=== PATIENT | male | born 1955 | race African-American/Black ===

== ENCOUNTER 2021-03-04 14:20 | Inpatient (IN) | payer MEDICARE, OTHER ==
[~2021-03-04] VITALS: Ht 185.4 cm; Wt 73.5 kg
--- NOTE | 2021-03-04 14:50 | NUR ---
THE PATIENT IS BIBRA85 HOME FOR BEING "CONFUSED" SINCE THIS MORNING. 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 IN ROOM AIR AND DENIES SOB. RESPIRATION REGULAR AND UNLABORED. DENIES PAIN. ATTACHED TO THE MONITOR. WARM BLANKET PROVIDED FOR COFMORT. WILL CONTINUE TO MONITOR THE PATIENT.
[2021-03-04 15:26] LABS: BASOPHILS # (AUTO) 0.1 K/uL (0.0-0.2); BASOPHILS % (AUTO) 0.6 % (0.0-2.0); EOSINOPHILS % (AUTO) 0.3 % (0.0-6.0); HEMATOCRIT 29 % (39-51); HEMOGLOBIN 9.5 g/dL (13.5-17.5); LYMPHOCYTES # (AUTO) 1.1 K/uL (0.8-4.8); LYMPHOCYTES % (AUTO) 8.8 % (20.0-44.0); MEAN CORPUSCULAR HGB CONC 33 g/dl (31.0-36.0); MEAN CORPUSCULAR VOLUME 84 fL (80-96); MONOCYTES # (AUTO) 1.6 K/uL (0.1-1.30); MONOCYTES % (AUTO) 12.2 % (2.0-12.0); NEUTROPHILS # (AUTO) 10.1 K/uL (1.8-8.9); NEUTROPHILS % (AUTO) 78.1 % (43.0-81.0); PLATELET COUNT (AUTO) 322 K/uL (150-450); RED BLOOD CELL COUNT(AUTO) 3.41 MIL/uL (4.5-6.0); WHITE BLOOD COUNT (AUTO) 12.9 K/uL (4.3-11.0)
[2021-03-04 15:34] LABS: CALCIUM, SERUM 8.7 mg/dL (8.5-10.1); CARBON DIOXIDE 20 mmol/L (21-32); CHLORIDE 93 mmol/L (98-107); GLUCOSE 115 mg/dL (74-106); POTASSIUM 3.6 mmol/L (3.5-5.1); SODIUM SERUM 125 mmol/L (136-145); UREA NITROGEN, BLOOD 26 mg/dL (7-18)
[2021-03-04 15:39] LABS: ALANINE AMINOTRANSFERASE 194 U/L (12-78); ALBUMIN 2.2 g/dL (3.4-5.0); ALKALINE PHOSPHATASE 175 U/L (46-116); ASPARTATE AMINOTRANSFERASE 159 U/L (15-37); BILIRUBIN,DIRECT 0.2 mg/dL (0.0-0.2); BILIRUBIN,TOTAL 0.5 mg/dL (0.2-1.0); TOTAL PROTEIN, SERUM 7.7 g/dL (6.4-8.2)
[2021-03-04 15:44] LABS: ALCOHOL, BLOOD < 10 mg/dL (0-0)
--- NOTE | 2021-03-04 15:52 | NUR ---
covid swab done and sent to the lab
[2021-03-04] MEDS ORDERED: IV NS 0.9% 1,000 ML BAG IV ONE (16:00)
[2021-03-04] MEDS ORDERED: RIVA10TA PO (16:36)
[2021-03-04] MEDS ORDERED: GABA800T11 PO (16:36)
[2021-03-04] MEDS ORDERED: CARI350T27 PO (16:36)
[2021-03-04] MEDS ORDERED: ZOLP10TA2 PO (16:36)
[2021-03-04] MEDS ORDERED: TRAM50TA2 PO (16:36)
[2021-03-04] MEDS ORDERED: HYDR-3972 PO (16:36)
--- NOTE | 2021-03-04 16:52 | NUR ---
PANEL ON-CALL PAGED
--- NOTE | 2021-03-04 17:29 | NUR ---
MD TO MD IN PROGRESS.
[2021-03-04] MEDS ORDERED: ACETAMINOPHEN 325 MG TABLET PO PRN (19:00)
[2021-03-04] MEDS ORDERED: MAG HYDROX/AL HYDROX/SIMETH 30 ML UDC PO PRN (19:00)
[2021-03-04] MEDS ORDERED: MAGNESIUM HYDROXIDE 30 ML UDC PO PRN (19:00)
[2021-03-04] MEDS ORDERED: HYDROCODONE/APAP 5/325MG TABLET PO PRN (19:00)
[2021-03-04] MEDS ORDERED: ONDANSETRON HCL/PF 4 MG/2 ML VIAL IVP PRN (19:00)
[2021-03-04] MEDS ORDERED: Z GUARD REMEDY 2 OZ OINT TP PRN (19:00)
[2021-03-04] MEDS ORDERED: ZOLPIDEM TARTRATE 5 MG TABLET PO PRN (19:00)
[2021-03-04 19:01] LABS: BILIRUBIN,URINE MODERATE (NEGATIVE); COLOR,URINE ORANGE (YELLOW); LEUKOCYTE ESTERASE ,URINE Negative (NEGATIVE); NITRITE, URINE Negative (NEGATIVE); PH,URINE 5.5 (5.0-8.0); PROTEIN,URINE 30 mg/dl (NEGATIVE); UGLUCOSE Negative (NEGATIVE); UROBILINOGEN,URINE 0.2 EU/dL (0.2)
--- NOTE | 2021-03-04 19:08 | NUR ---
BED 479-2
--- NOTE | 2021-03-04 19:28 | NUR ---
report given to nurse Yoder
--- NOTE | 2021-03-04 19:45 | NUR ---
RN NOTES Received pt. form ER with Dx. of Acute Encephalopathy, a/ox2, SR on tele monitor HR-75, sitter a5t bedside, skin assessment done, call light within reach, siderailsupx2, will continue to monitor Addendum: 03/05/21 at 0443 by JAEL PAIZ RN Right time 1954
--- NOTE | 2021-03-04 19:51 | NUR ---
PT TRANSFERED PER ACLS PROTOCOL BY BRENDAN SHANKAR
[2021-03-04 19:57] LABS: BACTERIA,URINE Rare /HPF (None Seen); SQUAMOUS EPITHELIAL CELL,UR Few /HPF (None Seen); WBC,URINE NONE SEEN /HPF (0-3)
[2021-03-04 20:00] VITALS: BP_SYST 145; BP_SYST 188; BP_DIAS 48; BP_DIAS 95
[2021-03-04] MEDS: IV NS 0.9% 1,000 ML IV SCH (20:46)
--- NOTE | 2021-03-04 21:11 | NUR ---
RN NOTES Complained of back pain= [place] 5/325mg po given as ordered, V/S stable
[2021-03-04] MEDS ORDERED: ZOLPIDEM TARTRATE 10 MG TABLET PO SCH (22:00)
[2021-03-05] VITALS: BP_SYST 130; BP_DIAS 41; BP_DIAS 45
--- NOTE | 2021-03-05 00:10 | NUR ---
RN NOTES PT ASKED FOR SLEEPING PILL- AMBIEN 5MG PO GIVEN ORDERED
[2021-03-05 03:51] VITALS: BP 123/45
--- NOTE | 2021-03-05 06:37 | NUR ---
RN NOTES SLEEPING BUT AROUSABLE, MORNING CARE RENDERED, CALL LIGHT WITHIN REACH, YONAILSUPX2, PT. NEEDS ATTENDED
[2021-03-05 07:08] LABS: BASOPHILS # (AUTO) 0.1 K/uL (0.0-0.2); BASOPHILS % (AUTO) 0.5 % (0.0-2.0); EOSINOPHILS % (AUTO) 0.3 % (0.0-6.0); HEMATOCRIT 27 % (39-51); LYMPHOCYTES # (AUTO) 1.1 K/uL (0.8-4.8); LYMPHOCYTES % (AUTO) 6.3 % (20.0-44.0); MEAN CORPUSCULAR HGB CONC 33 g/dl (31.0-36.0); MEAN CORPUSCULAR VOLUME 85 fL (80-96); MONOCYTES # (AUTO) 1.6 K/uL (0.1-1.30); MONOCYTES % (AUTO) 9.5 % (2.0-12.0); NEUTROPHILS # (AUTO) 14.4 K/uL (1.8-8.9); NEUTROPHILS % (AUTO) 83.4 % (43.0-81.0); PLATELET COUNT (AUTO) 331 K/uL (150-450); RED BLOOD CELL COUNT(AUTO) 3.18 MIL/uL (4.5-6.0); WHITE BLOOD COUNT (AUTO) 17.3 K/uL (4.3-11.0)
--- NOTE | 2021-03-05 07:18 | NUR ---
APPLICATION SUPPORT DEVELOPER OPENING NOTES RECEIVED PT AWAKE IN BED IN NO ACUTE SIGNS OF DISTRESS. 1:1 SITTER AT BEDSIDE. A/O X3. ABLE TO MAKE NEEDS KNOW, DENIES PAIN OR ANY DISCOMFORTS AT THIS TIME. CALM AND QUIET AT THIS TIME. ON ROOM AIR, BREATHING EVEN AND UNLABORED. ON TELE MONITORING WITH CURRENT READING OF NSR WITH HR ON THE 80'S, NO C/O CARDIAC DISTRESS VOICED. IV ACCESS ON LFA 18G INTACT AND PATENT, IVF OF NS @ 100ML/HR INFUSING WELL, NO S/S OF INFILTRATION AT SITE NOTED. SAFETY MEASURES IN PLACE: BED IN LOWEST LOCKED POSITION WITH SR-UP X2. CALL LIGHT W/IN REACH. WILL CONTINUE TO MONITOR PT ACCORDINGLY.
[2021-03-05 07:21] LABS: CALCIUM, SERUM 8.3 mg/dL (8.5-10.1); CREATININE 0.8 mg/dL (0.6-1.3); MAGNESIUM 2.3 mg/dL (1.8-2.4); PHOSPHORUS 3.5 mg/dL (2.5-4.9); POTASSIUM 3.4 mmol/L (3.5-5.1)
[2021-03-05 08:00] VITALS: BP 134/50
[2021-03-05] MEDS: GABAPENTIN 400 MG CAPSULE PO SCH ×3 (08:31→17:00)
[2021-03-05] MEDS ORDERED: TRAMADOL HCL 50 MG TABLET PO SCH (09:00)
[2021-03-05] MEDS ORDERED: RIVAROXABAN 10 MG TABLET PO SCH (09:00)
[2021-03-05] MEDS ORDERED: POTASSIUM CHLORIDE 20 MEQ TAB.PRT.SR PO SCH (09:30)
[2021-03-05] MEDS: IV NS 0.9% 1,000 ML IV SCH ×2 (09:41→15:00)
[2021-03-05 11:55] VITALS: BP 131/46
--- NOTE | 2021-03-05 17:01 | NUR ---
Social Service note: nursing services manager informed by Tele floor nursing that patient wants to leave AMA, and has called 911 several times from his hospital room. This MANAGER PORT and employment case manager arrived to the tele floor to meet with the patient. Patient is a 65 year old male, who was standing outside his hospital room, asking to have his IV's removed so he can go home. Patient was admitted to the hospital on 03/04/21 with dx of dehydration/altered mental status. Patient presents alert, oriented, provided this MANAGER PORT with his address and phone number, and stated he has his house keys and a visa credit card he can use to call a [employer] cab for himself. Patient had his cell phone with him. Patient lives with his . Patient stated he prefers to go home, and will then come back in the morning to see the doctor. JAYCOB Chen explained to the patient that if he left at this time, it would be against medical advice, and that if he wanted additional medical care tomorrow, he would have to go through the emergency room again and get re-admitted to the hospital. Patient expressed being fine with that, and even stated "that's ok, I can go to [facility] instead". Patient was provided with a chair, and this MANAGER PORT and case management then met with charge nurse Patti to discuss patient's wishes. Dr. Paz was also notified. Police officers also arrived onto the unit, and met with charge nurse. Nursing explained to the patient the risks of leaving against medical advice, but patient still insisted. Patient signed AMA papers. No further SS interventions needed at this time.
--- NOTE | 2021-03-05 17:30 | NUR ---
RN NOTES PT STATED THAT HE WANTED TO GO HOME AND WILLING TO SIGN CONSENT FOR LEAVING THE HOSPITAL AGAINST MEDICAL ADVISE. TRIED TO CONTACT HIS SEVERAL TIME BUT UN-ABLE TO REACH HER AND UN-ABLE TO LEFT MESSAGE BECAUSE HER VOICEMAIL WAS FULL. CM, SS STAFF ALSO CAME TO UNIT TO EXPLAINED TO PT'S HIS CURRENT MEDICAL CONDITION BUT STILL INSISTING TO GO HOME, HE EVEN CALL 911 AND 2 POLICE OFFICERS CAME AND SPOKE TO HIM THAT THE DOCTOR DIDN'T CLEAR HIM YET FOR DISCHARGE BUT PT IS VERY INSISTING TO GO HOME AGAINST MEDICAL ADVISE. CERTIFIED DIETARY MANAGER FINALLY ABLE TO SPOKE TO PT'S AND TRIED TO CONVINCE PT TO STAY FOR ONE MORE NIGHT DUE TO HIS MEDICAL CONDITION BUT PT DIDN'T WANT TO STAY AND HANG-UP HIS PHONE. DR RODGERS MADE AWARE OF PT'S DESIRED TO GO AMA. PT EXPLAINED RISKS AND CONSEQUENCES IN LEAVING HOSPITAL AT THIS TIME AND HE VERBALIZED UNDERSTANDING. PT SIGNED AMA FORM AND LEFT UNIT AT 1705 VIA WHEELCHAIR ACCOMPANIED BY ACE TOBIAS AND 2 POLICE OFFICERS TO LOBBY.
== END 2021-03-05 17:15 | disposition left against medical advice (07) | DRG 640 ==
LOC: ER 15:05 → TELE1 18:30 → TRANSITION 18:46 → TELE 19:08
PROVIDERS: ADMIT Family Medicine; ATTEND Family Medicine
DX: E86.9 Volume depletion, unspecified (principal); N17.0 Acute kidney failure with tubular necrosis; G92 Toxic encephalopathy; E43 Unspecified severe protein-calorie malnutrition; E87.1 Hypo-osmolality and hyponatremia; E87.2 Acidosis; D72.829 Elevated white blood cell count, unspecified; Z20.822 Contact with and (suspected) exposure to COVID-19; D64.9 Anemia, unspecified; E86.1 Hypovolemia; E87.6 Hypokalemia; G89.29 Other chronic pain; Z80.9 Family history of malignant neoplasm, unspecified; Z87.891 Personal history of nicotine dependence; D63.8 Anemia in other chronic diseases classified elsewhere; E88.09 Other disorders of plasma-protein metabolism, not elsewhere classified; R73.9 Hyperglycemia, unspecified; R74.8 Abnormal levels of other serum enzymes; Z79.891 Long term (current) use of opiate analgesic; Z68.21 Body mass index [BMI] 21.0-21.9, adult
CPT/HCPCS: 36415; 70450-TC; 71045-TC; 80048-TC; 80061-TC; 80076-TC; 81001; 82962-TC; 83735-TC; 84100-TC; 85025-TC; 87081-TC; C9803; G0378; G0480; J7030

== ENCOUNTER 2021-03-06 08:00 | Inpatient (IN) | payer MEDICARE, OTHER ==
[~2021-03-06] VITALS: Ht 185.4 cm; Wt 77.6 kg
[~2021-03-06 08:00] MED LIST: CARI350T27 PO; GABA800T11 PO; HYDR-3972 PO; RIVA10TA PO; TRAM50TA2 PO; ZOLP10TA2 PO
--- NOTE | 2021-03-06 08:18 | NUR ---
THE PATIENT OLGA'S YESTERDAY FROM THE ACUTE CARE ([facility]- FLOOR)- NOW HE COMES BACK TO ER FOR RE-CHECK?
--- NOTE | 2021-03-06 08:25 | NUR ---
PT CAME IN C/O CHRONIC BACK PAIN. AOX4, NO SOB NOTED AT THIS TIME, NO SIGN OF ANY ACUTE DISTRESS NOTED. NO C/O PAIN AT THIS TIME. WILL CONTINUE WITH PLAN OF CARE
[2021-03-06 08:43] LABS: BASOPHILS # (AUTO) 0.1 K/uL (0.0-0.2); BASOPHILS % (AUTO) 0.7 % (0.0-2.0); EOSINOPHILS % (AUTO) 0.3 % (0.0-6.0); HEMATOCRIT 28 % (39-51); HEMOGLOBIN 9.2 g/dL (13.5-17.5); LYMPHOCYTES # (AUTO) 1.4 K/uL (0.8-4.8); LYMPHOCYTES % (AUTO) 6.9 % (20.0-44.0); MEAN CORPUSCULAR HGB CONC 33 g/dl (31.0-36.0); MEAN CORPUSCULAR VOLUME 84 fL (80-96); MONOCYTES # (AUTO) 1.9 K/uL (0.1-1.30); MONOCYTES % (AUTO) 9.1 % (2.0-12.0); PLATELET COUNT (AUTO) 348 K/uL (150-450); WHITE BLOOD COUNT (AUTO) 20.4 K/uL (4.3-11.0)
[2021-03-06 09:03] LABS: ALBUMIN 2.2 g/dL (3.4-5.0); BILIRUBIN,DIRECT 0.4 mg/dL (0.0-0.2); BILIRUBIN,TOTAL 0.8 mg/dL (0.2-1.0); CALCIUM, SERUM 8.6 mg/dL (8.5-10.1); CREATININE 0.9 mg/dL (0.6-1.3); POTASSIUM 3.9 mmol/L (3.5-5.1); TOTAL PROTEIN, SERUM 7.6 g/dL (6.4-8.2)
--- NOTE | 2021-03-06 09:12 | NUR ---
PAGED EPIC DR BEAN FOR MD TO MD REPORT.
[2021-03-06] MEDS ORDERED: IV NS 0.9% 1,000 ML BAG IV ONE (09:30)
--- NOTE | 2021-03-06 09:35 | NUR ---
PIV INSERTED IN R-WRIST G#22, GOOD BLOOD RETURN NOTED. INTACT, PATENT AND FLUSHING WELL. PT TOLERATED WELL. WILL CONTINUE TO MONITOR
--- NOTE | 2021-03-06 09:44 | NUR ---
COVID SWAB DONE AT THIS TIME AND SEND TO LAB
[2021-03-06] MEDS ORDERED: IV NS 0.9% 1,000 ML IV PRN (10:30)
[2021-03-06] MEDS ORDERED: ONDANSETRON HCL/PF 4 MG/2 ML VIAL IVP PRN (10:30)
[2021-03-06] MEDS ORDERED: ACETAMINOPHEN 325 MG TABLET PO PRN (10:30)
[2021-03-06] MEDS ORDERED: CARISOPRODOL 350 MG TABLET PO PRN (10:30)
[2021-03-06] MEDS ORDERED: MAGNESIUM HYDROXIDE 30 ML UDC PO PRN (10:30)
[2021-03-06] MEDS ORDERED: Z GUARD REMEDY 2 OZ OINT TP PRN (10:30)
[2021-03-06] MEDS ORDERED: MAG HYDROX/AL HYDROX/SIMETH 30 ML UDC PO PRN (10:30)
--- NOTE | 2021-03-06 11:02 | NUR ---
room 116-2
[2021-03-06 11:28] LABS: THYROID STIMULATING HORMONE 2.949 uIU/mL (0.358-3.74)
--- NOTE | 2021-03-06 11:50 | NUR ---
RN NOTES RECEIVED PT FROM ER. AMBULATORY, USES CANE. A/O X4. STABLE ON ROOM AIR. NO SOB OR ANY S/S OF RESPIRATORY DISTRESS NOTED. SKIN IS INTACT. REFUSES TO CHANGE INTO OUR HOSPITAL GOWN. VACCINATIONS UP TO DATE. NO PAIN REPORTED. SAFETY MEASURES IMPLEMENTED. CALL LIGHT WITHIN REACH. PLACED TO BED, LOCKED AND IN LOWEST POSITION WITH SIDE RAILS UP X2. WILL CONTINUE TO MONITOR.
[2021-03-06 12:00] VITALS: BP 102/33
[2021-03-06] MEDS: ASPIRIN 325 MG TABLET PO SCH (12:48)
[2021-03-06] MEDS: GABAPENTIN 400 MG CAPSULE PO SCH ×2 (12:48→17:01)
[2021-03-06 16:00] VITALS: BP 115/55
[2021-03-06 16:52] LABS: BILIRUBIN,URINE SMALL (NEGATIVE); COLOR,URINE YELLOW (YELLOW); LEUKOCYTE ESTERASE ,URINE NEGATIVE (NEGATIVE); NITRITE, URINE NEGATIVE (NEGATIVE); PROTEIN,URINE TRACE mg/dl (NEGATIVE); UGLUCOSE NEGATIVE (NEGATIVE)
[2021-03-06] MEDS: RIVAROXABAN 10 MG TABLET PO SCH (17:03)
[2021-03-06 17:28] LABS: BACTERIA,URINE 1+ /HPF (None Seen); SQUAMOUS EPITHELIAL CELL,UR Few /HPF (None Seen)
--- NOTE | 2021-03-06 18:40 | NUR ---
RN CLOSING NOTES NO SIGNIFICANT CHANGES THROUGHOUT THE SHIFT. STABLE ON ROOM AIR. NO PAIN REPORTED. ALL DUE MEDS GIVEN. NEEDS ATTENDED. KEPT CLEAN AND COMFORTABLE. STILL REFUSES TO CHANGE INTO HOSPITAL GOWN. SAFETY MEASURES IN PLACE. WILL ENDORSE TO NIGHT RN FOR ARA.
--- NOTE | 2021-03-06 19:55 | NUR ---
[facility]/RN ON INITIAL SHIFT ROUNDING, PATIENT WAS SITTING AT EDGE OF BED AWAKE, ALERT, ORIENTED, COMFORTABLE, NO C/O PAIN, NO DISTRESS NOTED, CALL LIGHT IN REACH, WILL MONITOR.
[2021-03-06 20:00] VITALS: BP 162/52
--- NOTE | 2021-03-06 21:40 | NUR ---
RN NOTES pvc monitor noted patient HR not showing up on the monitor but rhythm looks like there's an ST elevation and increase HR. Primary RN went to check patient. V/s taken with HR 150-155. Asked for EKG order from Tamy Rajan; RT made aware. 2149 patient c/o SOB; noted to be diaphoretic; asked MT to call ADOPTION SOCIAL WORKER; primary RN stayed with patient. BS taken as 202. Nafisa Rajan updated 2154 ABG ordered ; still sustaining HR of 150's; obtained order for transfer to ICU. Transferred by bed.
[2021-03-06 22:05] LABS: ABG BASE EXCESS -14.5 mmol/L; ABG OXYGEN SATURATION 91.7 % (92.0-98.5); ABG PCO2 31.3 mmHg (35.0-45.0); ABG PH 7.208 (7.350-7.450); ABG PO2 79.2 mmHg (75.0-100.0); AaDO2 602.5 mmHg; COHb 0.1 % (0.5-1.5); MetHb 0.1 % (0.0-1.5); O2Hb 91.5 % (94.0-97.0); SITE, ABG Left Radial; VENT MODE, BG NRB 100%
[2021-03-06 22:09] VITALS: BP 154/59
[2021-03-06] MEDS ORDERED: AMIODARONE 150 MG/3 ML VIAL IV ONE (22:21)
[2021-03-06] MEDS ORDERED: AMIODARONE 150 MG in IV D5W 100 ML IV ONE (22:30)
[2021-03-06 23:00] VITALS: BP 124/57
[2021-03-06] MEDS ORDERED: PROPOFOL 100 ML IV PRN (23:00)
[2021-03-06] MEDS ORDERED: Sodium Bicarbonate 100 MEQ in IV D5/0.45 NACL 1,000 ML IV PRN (23:00)
[2021-03-06] MEDS: AMIODARONE 450 MG in IV D5W 241 ML IV PRN (23:04)
--- NOTE | 2021-03-06 23:17 | NUR ---
MEDIA LIBRARIAN NOTE: 2204: Rec'd pt from [facility] s/p rapid response as pt's HR was in 150s. Pt A&Ox4, on NRB mask at 15LPM, needing constant reminders to leave it on. ST on tele monitor w/ HR in 140-150s. Left wrist #22 patent and flushed. Amio bolus started. 2229: At around this time pt noted to be desaturating down to 36% and HR in 50s. Noted that pt has removed NRB mask. Placed pt back on mask, changed pulse ox. RT called stat to pt's room, charge nurse Ed at bedside. 2237: Code Blue activated. Pt asystole. See code blue report sheet. Pt intubated at 2243 7.5/22cm at the lip by ER MD Dr. Barraza. Stat CXR ordered and tube adjusted to 7.5/25cm at the lip. Nafisa Rajan NP at bedside w/ new orders for Diprivan if needed, restraints, sy catheter, NaHCO3 100meq drip, and ABG 2 hrs after start of bicarb drip. All orders noted and carried out.
--- NOTE | 2021-03-06 23:29 | NUR ---
DISABILITY HEARING OFFICER NOTE: James catheter placed by charge nurse Ed, clear/yellow urine noted.
--- NOTE | 2021-03-06 23:29 | NUR ---
@8854 PT CODED. CPR INITIATED. BEN SINGLETON AT BEDSIDE FOR INTUBATION. PT INTUBATED 7.5 ETT SECURED AT 26CM AT THE LIP. COLOR CHANGED ON CO2 DETECTOR, BILAT CHEST RISE AND BREATH SOUND. PLACED ON 840 VENT AC 20, 550, 100%, +5. PER IRENE GABRIEL ABG IN 2HRS. Addendum: 03/06/21 at 2332 by HUMBLE REYNOSO RT Amended: Links added.
--- NOTE | 2021-03-06 23:35 | NUR ---
HABILITATION ASSISTANT NOTE: Attempted to call pt's Katelynn Alford, phone is turned off and voicemail has not been set up. Will attempt again at later time.
[2021-03-07] VITALS (34 sets, daily range): BP systolic 79–152; BP diastolic 27–67
--- NOTE | 2021-03-07 00:10 | NUR ---
TANK DRIVER NOTE: Found pt's cell phone w/ 's cell # [phone]. Gave update on pt's condition. Stated that she will visit in am.
[2021-03-07] MEDS ORDERED: CEFEPIME 1 GM in IV D5W 50 ML IV SCH ×2 (00:30→01:30)
[2021-03-07 01:12] LABS: ABG BASE EXCESS -9.6 mmol/L; ABG OXYGEN SATURATION 99.2 % (92.0-98.5); ABG PH 7.362 (7.350-7.450); ABG PO2 177.7 mmHg (75.0-100.0); AaDO2 509.3 mmHg; COHb 0.1 % (0.5-1.5); MetHb 0.2 % (0.0-1.5); O2Hb 98.9 % (94.0-97.0); PEEP,BG 5 cm H2O; SITE, ABG Left Radial
--- NOTE | 2021-03-07 01:12 | NUR ---
ABG DONE POST INTUBATION. RN NOTIFIED WITH THE RESULT.
--- NOTE | 2021-03-07 01:15 | NUR ---
PIANO AND ORGAN REFINISHER NOTE: Relayed post intubation ABG results to tsering Harrison/ orders to titrate fio2 as tolerated. RT aware.
--- NOTE | 2021-03-07 01:20 | NUR ---
WATERMASTER NOTE: RT titrated pt's FiO2 down to 80%. Will continue to monitor.
[2021-03-07] MEDS ORDERED: CEFEPIME 1 GM VIAL ONE (01:43)
--- NOTE | 2021-03-07 02:16 | NUR ---
PARKING ATTENDANT NOTE: Pt's right wrist IV pulled out and left IJ infiltrated. IV sites removed, pressure applied. Restarted new IV sites on left AC #20 and RIJ #18 patent and flushed. Dressings c/d/i.
[2021-03-07 03:13] LABS: CALCIUM, SERUM 8.9 mg/dL (8.5-10.1); CREATININE 1.3 mg/dL (0.6-1.3); POTASSIUM 4.3 mmol/L (3.5-5.1)
--- NOTE | 2021-03-07 03:46 | NUR ---
SCIENCE INTERPRETER NOTE: RT titrated fio2 down to 70%. Pt tolerating well. Will continue to monitor.
[2021-03-07 05:03] LABS: BASOPHILS # (AUTO) 0.2 K/uL (0.0-0.2); BASOPHILS % (AUTO) 0.4 % (0.0-2.0); HEMATOCRIT 31 % (39-51); LYMPHOCYTES # (AUTO) 0.8 K/uL (0.8-4.8); MEAN CORPUSCULAR HGB CONC 32 g/dl (31.0-36.0); MEAN CORPUSCULAR VOLUME 87 fL (80-96); MONOCYTES # (AUTO) 1.6 K/uL (0.1-1.30); NEUTROPHILS # (AUTO) 37.3 K/uL (1.8-8.9); NEUTROPHILS % (AUTO) 93.6 % (43.0-81.0); PLATELET COUNT (AUTO) 377 K/uL (150-450); RED BLOOD CELL COUNT(AUTO) 3.59 MIL/uL (4.5-6.0)
[2021-03-07 05:09] LABS: WHITE BLOOD COUNT (AUTO) 39.9 K/uL (4.3-11.0)
[2021-03-07 05:32] LABS: ALBUMIN 2.1 g/dL (3.4-5.0); BILIRUBIN,DIRECT 0.4 mg/dL (0.0-0.2); BILIRUBIN,TOTAL 0.7 mg/dL (0.2-1.0); CALCIUM, SERUM 8.9 mg/dL (8.5-10.1); CREATININE 1.4 mg/dL (0.6-1.3); MAGNESIUM 2.1 mg/dL (1.8-2.4); PHOSPHORUS 4.5 mg/dL (2.5-4.9); POTASSIUM 4.4 mmol/L (3.5-5.1); TOTAL PROTEIN, SERUM 7.4 g/dL (6.4-8.2)
[2021-03-07 05:54] LABS: BAND % (MANUAL) 14 % (0.0-5.0); BASOPHILS % (MANUAL) 0 % (0.0-2.0); EOSINOPHILS % (MANUAL) 0 % (0-4); LYMPHOCYTES % (MANUAL) 3 % (16-48); MONOCYTES % (MANUAL) 4 % (0-11.0); NEUTROPHILS % (MANUAL) 79 (42-76)
--- NOTE | 2021-03-07 06:08 | NUR ---
STYRENE DEHYDRATION REACTOR OPERATOR NOTE: Rec'd critical labs WBC: 39.9 and troponin 1.996. Relayed labs to manager of investigations Nafisa Rajan, who stated that she already started pt on atb and will trend troponin. No other orders at this time. Will cont to monitor.
--- NOTE | 2021-03-07 07:30 | NUR ---
OPENING NOTE: REPORT RECEIVED FROM CESAR SHANKAR. PER REPORT PT WAS INTUBATED LAST NIGHT DURING CODE BLUE. AT THIS TIME PT HAS NO COUGH, NO GAG, NO PUPIL RESPONSE, PUPILS ARE FIXED AND DILATED AT 4, NO CORNEAL OR BLINK RESPONSE, NO RESPONSE TO PAIN, INCLUDING STERNAL RUB. PT'S RESPIRATIONS ARE 32, VENT SETTINGS ARE 20. PT IS ON AN AMIODARONE GTT PER MD ORDERS. CALHOUN CATHETER DRAINING WITHOUT DIFFICULTY. PT CHECKED ON HOURLY AND PRN BY NURSING STAFF.
[2021-03-07] MEDS: AMIODARONE 450 MG in IV D5W 241 ML IV PRN (08:11)
[2021-03-07 08:54] LABS: ABG BASE EXCESS -12.3 mmol/L; ABG OXYGEN SATURATION 97.4 % (92.0-98.5); ABG PCO2 24.2 mmHg (35.0-45.0); ABG PH 7.321 (7.350-7.450); ABG PO2 101.6 mmHg (75.0-100.0); AaDO2 371.5 mmHg; COHb 0.3 % (0.5-1.5); MetHb 0.2 % (0.0-1.5); O2Hb 96.9 % (94.0-97.0); PEEP,BG 5 cm H2O; SITE, ABG Left Radial; VENT MODE, BG AC 70%; VT, ABG 550 mL
[2021-03-07] MEDS ORDERED: TRAMADOL HCL 50 MG TABLET PO SCH (09:00)
[2021-03-07] MEDS: GABAPENTIN 400 MG CAPSULE PO SCH (09:00)
[2021-03-07] MEDS: ASPIRIN 325 MG TABLET PO SCH ×3 (09:53→15:05)
--- NOTE | 2021-03-07 10:50 | NUR ---
PT'S GRANDDAUGHTER JOSHUA YANDY [phone], WHO STATES SHE WAS RAISED BY PATIENT AND HIS , VISITED. PT'S CARIN HAD CONTACTED JOSHUA TO SEE PATIENT FOLLOWING GETTING INFORMATION ABOUT PT CODING. PER JOSHUA PT'S CARIN HAD A STROKE A FEW YEARS AGO AND HAS A DIFFICULT TIME GETTING AROUND. THE NUMBER FOR CARIN IN OUR SYSTEM IS AN OLD NUMBER, HER CURRENT CELL PHONE NUMBER IS [phone]. PER JOSHUA, PT HAD TOLD HIS AND HIS BROTHER THAT HE HAD BEEN TAKING HIS OWN PAIN MEDICATION WHILE HERE IN THE HOSPITAL. BESIDE RAAD MOY AND WHOLESALE BUYER RAZA 3 OPEN PILLS BOTTLES WERE FOUND IN PATIENT BELONGINGS. ALL 3 BOTTLES WERE FILLED BY [facility] [phone] ON 02/23/21. MED NAMES AND QUANTITIES ARE FOLLOWS: CARISOPRODOL 350MG TABS, QUANITITY FILLED ON 02/23/21 120 TABS, AMOUNT LEFT IN BOTTLE 10 TABS GABAPENTIN 800MG TABS, QUANTITY FILLED ON 02/23/21 120 TABS, AMOUNT LEFT IN BOTTLE 30 TABS TRAMADOL 50MG TABS, QUANTITY FILLED ON 02/23/21 150 TABS, AMOUNT LEFT IN BOTTLE 54 TABS. RN COUNTED PILLS IN FRONT OF GRANDDAUGHTER JOSHUA. JOSHUA WILL TAKE ALL 3 PILLS BOTTLES HOME AND WAS INSTRUCTED TO PROPERLY DISPOSE OF THEM, JOSHUA AGREED. DR. LANGLEY, DR NOVAK AND DR BEAN NOTIFIED.
--- NOTE | 2021-03-07 11:19 | NUR ---
PER DR. LANGLEY HOLD ASPIRIN TILL ASPIRIN LABS COME BACK
[2021-03-07 12:00] LABS: ACETAMINOPHEN < 10 ug/ml (10-30)
[2021-03-07] MEDS ORDERED: CALCIUM CHLORIDE 1,000 MG/10 ML DISP.SYRIN IV ONE (13:35)
[2021-03-07] MEDS ORDERED: EPINEPHRINE (1:10,000) SYRINGE 1 MG/10 ML DISP.SYRIN IVP ONE (13:35)
[2021-03-07] MEDS ORDERED: SODIUM BICARBONATE SYR 50 MEQ/50 ML DISP.SYRIN IV ONE (13:35)
[2021-03-07] MEDS ORDERED: ROCURONIUM BROMIDE 50 MG/5 ML IV ONE (13:38)
[2021-03-07] MEDS ORDERED: ETOMIDATE 2 MG/ML VIAL IV ONE (13:38)
--- NOTE | 2021-03-07 14:19 | NUR ---
PER DR. LANGLEY OK TO GIVE ASPIRIN TODAY
[2021-03-07] MEDS: PIPERACILLIN /TAZOBACTAM 3.375 G in IV D5W 50 ML IV SCH ×2 (15:05→18:04)
[2021-03-07] MEDS: RIVAROXABAN 10 MG TABLET PO SCH (18:05)
--- NOTE | 2021-03-07 19:21 | NUR ---
NAVY MATERIAL INSPECTOR OPENING NOTES: Rec'd pt in bed, intubated 7.5/26cm at the lip. Does not respond to painful stimuli. SR on tele monitor. OGT in place patent and flushed. GIGI midline, right EJ TLC and LAC #20 patent and flushed w/ Amio drip infusing at 0.5mg/min. Will turn off per protocol. Pt NPO except meds. James catheter in place patent and draining urine via gravity. Safety measures in place. Will continue to monitor.
--- NOTE | 2021-03-07 19:25 | NUR ---
END OF SHIFT NOTE: PT HAS A WEAK COUGH REFLEX, NO OTHER NEURO REFLEX PRESENT. FAMILY VISITED TODAY. DR LANGLEY SPOKE TO PT'S GRANDDAUGHTER ABOUT NEURO STATUS, SHE UNDERSTOOD THAT WE MIGHT NOT KNOW FOR 72 HOURS IF PATIENT WILL REGAIN ANY OF HIS PREVIOUS NEURO STATUS. CT OF ABD DONE PER MD ORDERS. PER PT'S PT'S BROTHER ALICIA TOVAR CAN BE CONTACTED FOR PATIENT INFORMATION OR CONSENTS IF SHE OR PT'S GRANDDAUGHTER CAN NOT REACHED, HIS PHONE NUMBER IS [phone]. PT CHECKED ON HOURLY AND PRN BY NURSING STAFF.
--- NOTE | 2021-03-07 20:33 | NUR ---
CIRCUIT COURT MAGISTRATE NOTE: Pt noted w/ temp of 100.0. Cooling measures in place. Will cont to monitor.
[2021-03-07] MEDS ORDERED: CEFEPIME 2 GM in IV D5W 100 ML IV SCH (21:00)
--- NOTE | 2021-03-07 22:08 | NUR ---
MECHANICAL MAINTENANCE SUPERVISOR NOTE: Pt's BP has been in low 80s. Paged air conditioning sheet metal installer Nafisa Rajan and rec'd new order for Levo drip to keep SBP >90. Order noted and carried out.
[2021-03-07] MEDS ORDERED: NOREPINEPHRINE 8MG/250ML RTU 250 ML IV ONE (22:13)
[2021-03-07] MEDS ORDERED: NOREPINEPHRINE 8 MG in IV NS 0.9% 242 ML IV PRN (22:30)
[2021-03-07 23:36] LABS: BILIRUBIN,URINE NEGATIVE (NEGATIVE); COLOR,URINE YELLOW (YELLOW); LEUKOCYTE ESTERASE ,URINE NEGATIVE (NEGATIVE); NITRITE, URINE NEGATIVE (NEGATIVE); PH,URINE 5.5 (5.0-8.0); PROTEIN,URINE 100 mg/dl (NEGATIVE); UGLUCOSE NEGATIVE (NEGATIVE)
[2021-03-08] VITALS (25 sets, daily range): BP systolic 38–136; BP diastolic 13–49
[2021-03-08] MEDS ORDERED: CALCIUM CHLORIDE 1,000 MG/10 ML DISP.SYRIN ONE
[2021-03-08] MEDS ORDERED: EPINEPHRINE (1:10,000) SYRINGE 1 MG/10 ML DISP.SYRIN ONE
[2021-03-08] MEDS ORDERED: SODIUM BICARBONATE SYR 50 MEQ/50 ML DISP.SYRIN ONE
--- NOTE | 2021-03-08 00:04 | NUR ---
DRAY DRIVER NOTE: Pt's FiO2 titrated down to 60% by RT. O2 sat WNL. Will continue to monitor.
[2021-03-08] MEDS ORDERED: IV NS 0.9% 250 ML IV PRN (00:30)
[2021-03-08 00:55] LABS: BACTERIA,URINE Moderate /HPF (None Seen); RBC,URINE 81-100 /HPF (0-2); SQUAMOUS EPITHELIAL CELL,UR Few /HPF (None Seen); URINE AMORPHOUS URATE Moderate /HPF (None Seen)
[2021-03-08] MEDS: PIPERACILLIN /TAZOBACTAM 3.375 G in IV D5W 50 ML IV SCH (01:20)
[2021-03-08 02:02] LABS: EOSINOPHIL,URINE None Seen
--- NOTE | 2021-03-08 04:04 | NUR ---
PT CODED, PERFORMED CPR.
--- NOTE | 2021-03-08 04:41 | NUR ---
DISTRICT SERVICE MANAGER. AFTER MULTIPLE CODE BLUE, I HARDLY REACH PT'S FAMILY MEMBER- LASHELL, BROTHER. PHONE [phone]. HE WAS UPDATED ABOUT PT CONDITION & AGREED TO PUT PT ON DNR CODE. IN ONE MINUTE AFTER RESUSCITATION WAS STOPPED PT WAS PRONOUNCED BY IRENE MADDOX NP. @ 0228.
--- NOTE | 2021-03-08 04:48 | NUR ---
AT 04:15 HRS WAS ADVISED BY LEVY BATCH PLANT SUPERVISOR TO RTN OR WILL CALL REGARDING CX XRAY PT S / P CODE BLUE UNSTABLE, END OF NOTE.
--- NOTE | 2021-03-08 05:35 | NUR ---
ROSE GRADER NOTE: Pt had BM and this nurse and another RN were cleaning pt. After finishing, pt started to chi down and BP dropped. Pt went junctional on tele monitor and markell garg was called at 0404. See markell blue report sheet. Rosc sustained at 0413. 0421: Pt began to chi down and go junctional on tele monitor. Markell garg called, see report sheet. Nafisa Rajan NP at bedside. 0427: ROSC sustained. 0433: Pt began to chi down and go junctional on tele monitor. Markell garg called, see report sheet. Nafisa Rajan NP at bedside. During code, charge nurse Ed was able to speak w/ pt's brother Ryan who agreed to change code status to DNR. Code stopped at 0435 and pt . 0505: Called [facility] [employer], ok to release body
[2021-03-08 11:55] LABS: CREATININE, URINE 209.7 MG/DL (30.0-125.0); URINE TOTAL PROTEIN 193.1 mg/dL (0-11.9)
[2021-03-10 08:06] LABS: *SPE A/G RATIO 0.5 (0.7-1.7); *SPE ALBUMIN 2.2 g/dL (2.9-4.4); *SPE ALPHA-1-GLOBULIN 0.4 g/dL (0.0-0.4); *SPE ALPHA-2-GLOBULIN 0.8 g/dL (0.4-1.0); *SPE BETA GLOBULIN 1.6 g/dL (0.7-1.3); *SPE GLOBULIN, TOTAL 4.3 g/dL (2.2-3.9); *SPE M-SPIKE 0.4 g/dL (Not Observed); *SPEGAMMA GLOBULIN 1.5 g/dL (0.4-1.8)
--- NOTE | 2021-03-10 09:29 | NUR ---
SS consult requested over the weekend. Pt. has departed.
== END 2021-03-08 00:43 | DRG 871 ==
LOC: ER 08:08 → TELE1 11:08 → ICU 22:07
PROVIDERS: ADMIT Internal Medicine; ATTEND Internal Medicine
PROC: 0BH18EZ Insertion of Endotracheal Airway into Trachea, Via Natural or Artificial Opening Endoscopic (ICD-10-PCS; 2021-03-06)
PROC: 5A12012 Performance of Cardiac Output, Single, Manual (ICD-10-PCS; 2021-03-06)
PROC: 5A1945Z Respiratory Ventilation, 24-96 Consecutive Hours (ICD-10-PCS; principal; 2021-03-07)
PROC: 05H533Z Insertion of Infusion Device into Right Subclavian Vein, Percutaneous Approach (ICD-10-PCS; 2021-03-07)
PROC: B546ZZA Ultrasonography of Right Subclavian Vein, Guidance (ICD-10-PCS; 2021-03-07)
PROC: 5A12012 Performance of Cardiac Output, Single, Manual (ICD-10-PCS; 2021-03-08)
DX: A41.9 Sepsis, unspecified organism (principal); I21.4 Non-ST elevation (NSTEMI) myocardial infarction; E43 Unspecified severe protein-calorie malnutrition; N17.0 Acute kidney failure with tubular necrosis; J96.01 Acute respiratory failure with hypoxia; G92 Toxic encephalopathy; E87.1 Hypo-osmolality and hyponatremia; G93.1 Anoxic brain damage, not elsewhere classified; E87.2 Acidosis; I47.1 Supraventricular tachycardia; E86.1 Hypovolemia; E86.0 Dehydration; E88.09 Other disorders of plasma-protein metabolism, not elsewhere classified; Z79.01 Long term (current) use of anticoagulants; Z87.891 Personal history of nicotine dependence; D72.829 Elevated white blood cell count, unspecified; D64.9 Anemia, unspecified; M54.5 Low back pain; R74.01 Elevation of levels of liver transaminase levels; R63.4 Abnormal weight loss; Z68.22 Body mass index [BMI] 22.0-22.9, adult; Z91.19 Patient's noncompliance with other medical treatment and regimen; Z20.822 Contact with and (suspected) exposure to COVID-19; G89.29 Other chronic pain; Z79.891 Long term (current) use of opiate analgesic
CPT/HCPCS: 31720; 36415; 36600; 71045-TC; 76700-TC; 80048-TC; 80053-TC; 80076-TC; 81001; 82140-TC; 82570-TC; 82728-TC; 82803-TC; 82962-TC; 83540-TC; 83605-TC; 83690-TC; 83735-TC; 83880; 84100-TC; 84155; 84155-TC; 84165; 84300-TC; 84439-TC; 84443-TC; 84484-TC; 85025-TC; 87040-TC; 87081-TC; 87086-TC; 92950-TC; 93307-TC; 94002-TC; 94003-TC; 94799-TC; A6403; C9803; G0378; J0171; J0282; J0692; J2543; J3490; J7030; J7050; J7060